=== PATIENT | female | born 1970 | race Hispanic/Latino ===

== ENCOUNTER 2017-06-19 18:15 | Emergency (ER) | payer OTHER | END 2017-06-19 18:33 | disposition left against medical advice (07) | LOC: ED 18:15 | DX: Z02.89 Encounter for other administrative examinations (principal); Z00.00 Encounter for general adult medical examination without abnormal findings ==

== ENCOUNTER 2017-10-12 14:58 | Emergency (ER) | payer OTHER ==
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
[2017-10-12 15:22] VITALS: BMI 32.1
[2017-10-12] MEDS ORDERED: Sodium Chloride 0.9% 1,000 ML IV STA (15:23)
[2017-10-12 15:51] VITALS: TEMP 98
[2017-10-12 16:05] LABS: BASO # 0.01 K/mm3 (0.0-2.0); BASO % 0.1 % (0.0-3.0); EOS % 0.4 % (1.5-5.0); GRAN # 5.16 (1.4-6.5); GRAN % 75.8 % (50.0-68.0); HEMOGLOBIN 13.4 g/dL (12.0-16.0); LYMPH # 1.3 (1.2-3.4); LYMPH % 19.2 % (22.0-35.0); MEAN CELL VOLUME 89.6 fl (80.0-105.0); MEAN CORPUSCULAR HEMOGLOBIN 30.9 pg (25.0-35.0); MEAN CORPUSCULAR HGB CONC 34.4 g/dl (31.0-37.0); MEAN PLATELET VOLUME 9.4 fl (7.0-11.0); MONO # 0.3 (0.1-0.6); MONO % 4.5 % (1.0-6.0); RBC 4.34 10^6/uL (3.5-6.1); RED CELL DISTRIBUTION WIDTH 12.9 % (11.5-14.5); WHITE BLOOD COUNT 6.8 10^3/ul (4.5-11.0)
[2017-10-12 16:26] LABS: ALB/GLOB RATIO 1.3 (1.1-1.8); ALBUMIN 3.9 g/dL (3.0-4.8); ALT/SGPT 26 U/L (7-56); AST/SGOT 34 U/L (14-36); BLOOD UREA NITROGEN 15 mg/dL (7-21); CALCIUM 9.2 mg/dL (8.4-10.5); GFR AFRICAN-AMERICAN > 60; GFR NON-AFRICAN AMERICAN > 60; URIC ACID 4.2 mg/dL (2.5-6.2)
[2017-10-12 16:43] LABS: BARBITURATES, UR NEGATIVE (NEGATIVE); BENZODIAZEPINES, UR NEGATIVE (NEGATIVE); OPIATES, UR NEGATIVE (NEGATIVE); PHENCYCLIDINE, UR POSITIVE (NEGATIVE)
--- NOTE | 2017-10-12 17:09 | CT ---
PROCEDURE: CT HEAD WITHOUT CONTRAST. HISTORY: r/o bleed COMPARISON: None available. TECHNIQUE: Axial computed tomography images were obtained through the head/brain without intravenous contrast. Radiation dose: Total exam DLP = 795.11 mGy-cm. This CT exam was performed using one or more of the following dose reduction techniques: Automated exposure control, adjustment of the mA and/or kV according to patient size, and/or use of iterative reconstruction technique. FINDINGS: HEMORRHAGE: No intracranial hemorrhage. BRAIN: No mass effect or edema. The farrell-white matter differentiation appears intact. Please note that MRI with diffusion imaging is more sensitive in the detection of acute ischemic event. VENTRICLES: No hydrocephalus. CALVARIUM: Unremarkable. PARANASAL SINUSES: Unremarkable as visualized. No significant inflammatory changes. MASTOID AIR CELLS: Unremarkable as visualized. No inflammatory changes. OTHER FINDINGS: None. IMPRESSION: No acute intracranial pathology identified.
[2017-10-12 17:42] VITALS: BP 122/74; PULSE 78; RESP 17; O2SAT 97
--- NOTE | 2017-10-12 18:04 | US ---
PROCEDURE: Left lower extremity venous US HISTORY: Leg pain and swelling. Evaluate for DVT. PHYSICIAN(S): Royce Marques MD. TECHNIQUE: Duplex sonography and color-flow Doppler with graded compression were used to evaluate the deep venous system of the left lower extremity. FINDINGS: The visualized deep venous system of the left lower extremity is sonographically normal and compressible. Normal wave forms and augmentation are seen. There is no sonographic evidence for deep venous thrombosis in the visualized segments of the left lower extremity. IMPRESSION: 1. No sonographic evidence for deep venous thrombosis in the visualized segments of the left lower extremity.
--- NOTE | 2017-10-12 18:54 | RAD ---
PROCEDURE: Left Foot Radiographs. HISTORY: lt. foot pain x 2 weeks COMPARISON: None. FINDINGS: BONES: A nondisplaced fracture of the distal diaphysis of the 2nd metatarsal bone is appreciated. No dislocation. No additional fracture. JOINTS: Degenerative joint space narrowing and cortical sclerosis appreciate throughout the forefoot greater than midfoot and hindfoot joints. SOFT TISSUES: Normal. OTHER FINDINGS: None. IMPRESSION: Nondisplaced fracture 2nd metatarsal bone. Degenerative changes as described above.
--- NOTE | 2017-10-14 02:50 | CARD ---
APPROVED REPORT EKG Measurement Heart [id number] NM [id number] [id number] <Conclusion> Normal sinus rhythm Normal ECG
== END 2017-10-12 17:46 | disposition home or self-care (01) ==
LOC: ED 14:58
DX: S92.322A Displaced fracture of second metatarsal bone, left foot, initial encounter for closed fracture (principal); X58.XXXA Exposure to other specified factors, initial encounter
CPT/HCPCS: 70450; 73630; 80053; 80320; 80324; 80345; 80346; 80349; 80353; 80358; 80361; 82550; 83992; 84550; 85025; 93971; 96360; 99284; J7040

== ENCOUNTER 2017-12-01 11:26 | Emergency (ER) | payer MEDICAID, OTHER ==
[2017-12-01 11:27] VITALS: BMI 32.1
[2017-12-01 11:57] VITALS: BP 119/68; PULSE 109; RESP 19; TEMP 99.5; O2SAT 97
[2017-12-01] MEDS ORDERED: Ipratropium 0.02% Inhal Soln (0.5 mg/2.5 ml) UD IH STA (12:05)
--- NOTE | 2017-12-01 12:48 | ED PDOC ---
Arrival/HPI - General Chief Complaint: Shortness Of Breath Time Seen by Provider: 12/01/17 12:03 Historian: Patient - History of Present Illness Narrative History of Present Illness (Text): 12/01/17 12:41 A 47 year old female, whose past medical history includes asthma and HIV on [place] with last cd4 count about 1000 and undetectable viral load, presents to the emergency department complaining of URI symptoms for the past 3 days. Patient reports rhinorrhea, a productive cough with white sputum, worsening shortness of breath and pleuritic chest tightness. He states symptoms feel similar to prior asthma exacerbations. Patient is recalcitrant to q8q12 home nebulizer treatment. He denies exertional chest pain or other symptoms of infected foci. Patient denies any fever, chills, nausea, vomiting, abdominal pain, headache, dizziness or any other complaints. Time/Duration: Other (3 days) Symptom Course: Worsening Context: Home Past Medical History - Provider Review Nursing Documentation Reviewed: Yes - Infectious Disease Hx of Infectious Diseases: None - Cardiac Hx Cardiac Disorders: No - Pulmonary Hx Respiratory Disorders: Yes Hx Asthma: Yes - Neurological Hx Neurological Disorder: No - HEENT Hx HEENT Disorder: No - Renal Hx Renal Disorder: No - Endocrine/Metabolic Hx Endocrine Disorders: No - Hematological/Oncological Hx Blood Disorders: Yes - Integumentary Hx Dermatological Disorder: No - Musculoskeletal/Rheumatological Hx Musculoskeletal Disorders: No - Gastrointestinal Hx Gastrointestinal Disorders: No - Genitourinary/Gynecological Hx Genitourinary Disorders: No - Psychiatric Hx Psychophysiologic Disorder: Yes Hx Depression: Yes Hx Substance Use: Yes - Surgical History Hx Section: Yes Hx Hysterectomy: Yes - Anesthesia Hx Anesthesia: Yes Hx Anesthesia Reactions: No Family/Social History - Physician Review Nursing Documentation Reviewed: Yes Family/Social History: No Known Family HX Smoking Status: Never Smoked Hx Alcohol Use: No Hx Substance Use: Yes Allergies/Home Meds Allergies/Adverse Reactions: Allergies No Known Allergies Allergy (Verified 12/01/17 11:33) Review of Systems - Physician Review All systems were reviewed & negative as marked: Yes - Review of Systems Constitutional: absent: Fevers, Night Sweats ENT: Rhinorrhea Respiratory: SOB, Cough, Sputum Cardiovascular: Chest Pain (Pleuritic chest tightness, NON-EXERTIONAL) Gastrointestinal: absent: Abdominal Pain, Nausea, Vomiting Neurological: absent: Headache, Dizziness Physical Exam Vital Signs Reviewed: Yes Vital Signs Temp Pulse Resp BP Pulse Ox 12/01/17 11:56 99.5 F 109 H 19 119/68 97 12/01/17 11:49 18 98 Temperature: Afebrile Blood Pressure: Normal Pulse: Tachycardic Respiratory Rate: Normal Appearance: Positive for: Well-Appearing, Non-Toxic, Comfortable Pain Distress: None Mental Status: Positive for: Alert and Oriented X 3 - Systems Exam Head: Present: Atraumatic, Normocephalic Pupils: Present: PERRL Extroacular Muscles: Present: EOMI Conjunctiva: Present: Normal Mouth: Present: Moist Mucous Membranes Neck: Present: Normal Range of Motion Respiratory/Chest: Present: Good Air Exchange, Wheezes (expiratory wheezing), Other (Patient able to speak in complete sentences without any difficulty). No : Respiratory Distress, Accessory Muscle Use Cardiovascular: Present: Regular Rate and Rhythm, Normal S1, S2. No: Murmurs Abdomen: No: Tenderness, Distention, Peritoneal Signs Back: Present: Normal Inspection Upper Extremity: Present: Normal Inspection. No: Cyanosis, Edema Lower Extremity: Present: Normal Inspection. No: Edema Neurological: Present: GCS=15, CN II-XII Intact, Speech Normal Skin: Present: Warm (tactile temperature), Dry, Normal Color. No: Rashes Psychiatric: Present: Alert, Oriented x 3, Normal Insight, Normal Concentration Medical Decision Making ED Course and Treatment: 12/01/17 12:41 Impression: A 47 year old female with rhinorrhea, a productive cough with white sputum, worsening shortness of breath and pleuritic chest tightness. Plan: -- Chest xray -- EKG -- Labs -- Blood and Urine culture -- Urinalysis -- Tylenol, Duoneb, Atrovvent and Solumedrol -- Reassess and disposition Progress Notes: Report Date : 12/01/2017 13:55:09 Procedure: Chest xray Dictator : Leana Bird MD IMPRESSION: No active pulmonary disease. 12/01/17 14:37 pt feels better s/p rx and nebulizer treatments, labs wnl. no susupicion of pcp pneumonia. will send home on nebulizers/steroids. - Lab Interpretations Lab Results: 12/01/17 12:24 12/01/17 12:24 Lab Results 12/01/17 12:24: Sodium 141, Potassium 3.5 L, Chloride 105, Carbon Dioxide 26, Anion Gap 14, BUN 15, Creatinine 0.8, Est GFR ( Amer) > 60, Est GFR (Non- Af Amer) > 60, Random Glucose 114 H, Calcium 9.4, Total Bilirubin 0.2, AST 34, ALT 24, Alkaline Phosphatase 93, Lactate Dehydrogenase 473, Total Protein 7.5, Albumin 3.9, Globulin 3.7, Albumin/Globulin Ratio 1.1 12/01/17 12:24: PT 11.2, INR 0.97, APTT 27.6 12/01/17 12:24: WBC 6.5, RBC 4.43, Hgb 13.9, Hct 39.5, MCV 89.2, MCH 31.4, MCHC 35.2, RDW 12.6, Plt Count 214, MPV 9.3, Gran % 68.5 H, Lymph % (Auto) 23.4, [place] % (Auto) 7.3 H, Eos % (Auto) 0.6 L, Baso % (Auto) 0.2, Gran # 4.43, Lymph # (Auto) 1.5, [place] # (Auto) 0.5, Eos # (Auto) 0.0, Baso # (Auto) 0.01 I have reviewed the lab results: Yes - RAD Interpretation Radiology Orders: 12/01/17 12:26 CHEST PORTABLE [RAD] Stat - Medication Orders Current Medication Orders: Discontinued Medications Acetaminophen (Tylenol 325mg Tab) 975 mg PO STAT STA Stop: 12/01/17 12:05 Last Admin: 12/01/17 13:06 Dose: 975 mg Albuterol/Ipratropium (Duoneb 3 Mg/0.5 Mg (3 Ml) Ud) 3 ml IH Q15M GLADYS Stop: 12/01/17 13:01 Last Admin: 12/01/17 13:07 Dose: 3 ml Ipratropium [place] (Atrovent) 0.5 mg IH STAT STA Stop: 12/01/17 12:06 Last Admin: 12/01/17 13:06 Dose: 0.5 mg Methylprednisolone (Solu-Medrol) 125 mg IVP STAT STA Stop: 12/01/17 12:30 Last Admin: 12/01/17 13:06 Dose: 125 mg IVP Administration Document 12/01/17 13:06 WI (Rec: 12/01/17 13:06 WI [id number]) Charges for Administration # of IVP Administrations 1 - Scribe Statement The provider has reviewed the documentation as recorded by the Scribvik Greenberg Provider Scribe Attestation: All medical record entries made by the Scribe were at my direction and personally dictated by me. I have reviewed the chart and agree that the record accurately reflects my personal performance of the history, physical exam, medical decision making, and the department course for this patient. I have also personally directed, reviewed, and agree with the discharge instructions and disposition. Disposition/Present on Arrival - Present on Arrival Any Indicators Present on Arrival: No History of DVT/PE: No History of Uncontrolled Diabetes: No Urinary Catheter: No History of Decub. Ulcer: No History Surgical Site Infection Following: None - Disposition Have Diagnosis and Disposition been Completed?: Yes Diagnosis: Asthma exacerbation, Upper respiratory infection Disposition: HOME/ ROUTINE Disposition Time: 14:40 Patient Plan: Discharge Patient Problems: Current Active Problems Problem Status Onset Asthma exacerbation Acute Condition: GOOD Print Language: AUSTR[place] Additional Instructions: Continue with nebulizer treatmens, drnking lots of water, and take your antibiotic script. Prescriptions: Albuterol HFA [Ventolin HFA 90 mcg/actuation (8 g)] 2 puff IH Q4 PRN 5 Days puff PRN Reason: Shortness Of Breath Azithromycin 250 mg PO DAILY #4 tablet Prednisone [Deltasone] 40 mg PO DAILY #8 tablet Forms: [employer] ([place])
[2017-12-01] MEDS: Albuterol-Ipratrop 3 mg / 0.5 (3 ml) UD IH SCH ×3 (13:07→14:00)
[2017-12-01 13:12] LABS: BASO # 0.01 K/mm3 (0.0-2.0); BASO % 0.2 % (0.0-3.0); EOS % 0.6 % (1.5-5.0); GRAN # 4.43 (1.4-6.5); GRAN % 68.5 % (50.0-68.0); HEMOGLOBIN 13.9 g/dL (12.0-16.0); LYMPH # 1.5 (1.2-3.4); LYMPH % 23.4 % (22.0-35.0); MEAN CELL VOLUME 89.2 fl (80.0-105.0); MEAN CORPUSCULAR HEMOGLOBIN 31.4 pg (25.0-35.0); MEAN CORPUSCULAR HGB CONC 35.2 g/dl (31.0-37.0); MEAN PLATELET VOLUME 9.3 fl (7.0-11.0); MONO # 0.5 (0.1-0.6); MONO % 7.3 % (1.0-6.0); RBC 4.43 10^6/uL (3.5-6.1); RED CELL DISTRIBUTION WIDTH 12.6 % (11.5-14.5); WHITE BLOOD COUNT 6.5 10^3/ul (4.5-11.0)
[2017-12-01 13:30] LABS: INR 0.97 (0.93-1.08); PARTIAL THROMBOPLASTIN TIME 27.6 Seconds (25.1-36.5); PROTHROMBIN TIME 11.2 SECONDS (9.4-12.5)
[2017-12-01 13:47] LABS: ALB/GLOB RATIO 1.1 (1.1-1.8); ALBUMIN 3.9 g/dL (3.0-4.8); ALT/SGPT 24 U/L (7-56); AST/SGOT 34 U/L (14-36); BLOOD UREA NITROGEN 15 mg/dL (7-21); CALCIUM 9.4 mg/dL (8.4-10.5); GFR AFRICAN-AMERICAN > 60; GFR NON-AFRICAN AMERICAN > 60
--- NOTE | 2017-12-01 13:56 | RAD ---
HISTORY: Sepsis Patient COMPARISON: No prior. FINDINGS: LUNGS: The lungs are well inflated and clear. PLEURA: No significant pleural effusion identified, no pneumothorax apparent. CARDIOVASCULAR: Normal. OSSEOUS STRUCTURES: No significant abnormalities. VISUALIZED UPPER ABDOMEN: Normal. OTHER FINDINGS: None. IMPRESSION: No active pulmonary disease.
--- NOTE | 2017-12-01 14:27 | CARD ---
APPROVED REPORT EKG Measurement Heart [id number] MA [id number] [id number] <Conclusion> Sinus tachycardia Otherwise normal ECG
== END 2017-12-01 15:00 | disposition home or self-care (01) ==
LOC: ED 11:26
DX: J45.901 Unspecified asthma with (acute) exacerbation (principal); J06.9 Acute upper respiratory infection, unspecified
CPT/HCPCS: 71045; 80053; 83615; 85025; 85610; 85730; 87040; 93005; 96374; 99284; J2930